=== PATIENT | female | born 1980 | race Caucasian/White ===

== ENCOUNTER 2019-03-11 12:10 | Emergency (ER) | payer OTHER ==
[~2019-03-11] VITALS: Ht 162.6 cm; Wt 77.1 kg
[~2019-03-11 12:10] MED LIST: ALBU90OI; AMOX500 PO; AMPDEX10 PO; Augmentin 875-1 EACH PO; BC PATCH; BUPR150ER PO; BUPR150T2 PO; CITA20 PO; CLON1 PO; CODGUAEL PO; DOCU100 PO; ESTNORT PO; FLUT.05NI; GABA300 PO; HYDPAM25 PO; Hair, Skin & N1 EACH; IBUP600 PO; IBUP800 PO; KETO10 PO; METPHE10; METPHE20; METPHE20 PO; Macrodantin100 MG PO; Norco 5-325 Ta1 EACH PO; ONDA4ODT MM; OXYACE5T PO; PRAZ5 PO; PROC10 PO; PROM25 PO; PROM25S PR; Phenergan25 M1 PO; TOPI25; TRAM50 PO; TRAZ100 PO; Valium5 MG PO; WELLBUTRIN; ZIPR20; ZIPR20 PO; Zyprexa10 MG PO
[2019-03-11] MEDS ORDERED: CITA20 (12:28)
[2019-03-11] MEDS ORDERED: Lisinopril2.5 MG (12:28)
[2019-03-11] MEDS ORDERED: ESCI5 (12:28)
[2019-03-11 12:49] LABS: BASOPHILS ABSOLUTE AUTO 0.03 K/mm3 (0.00-0.23); BASOPHILS PERCENT AUTO 0 % (0-2); EOSINOPHILS ABSOLUTE AUTO 0.01 K/mm3 (0.00-0.68); EOSINOPHILS PERCENT AUTO 0 % (0-6); Hematocrit 37.8 % (33.0-51.0); Hemoglobin 12.6 g/dL (11.5-16.0); IMMATURE GRAN ABSOLUTE AUTO 0.02 K/mm3 (0.00-0.10); IMMATURE GRAN PERCENT AUTO 0 % (0-1); LYMPHOCYTES ABSOLUTE AUTO 1.26 K/mm3 (0.84-5.20); LYMPHOCYTES PERCENT AUTO 18 % (21-46); MONOCYTES PERCENT AUTO 9 % (4-13); Mean Corpuscular HGB 28.9 pg (26.0-34.0); Mean Corpuscular HGB Conc 33.3 g/dL (31.5-36.5); Mean Corpuscular Volume 87 fL (80-100); Mean Platelet Volume 11.3 fL (9.1-12.4); NEUTROPHILS ABSOLUTE AUTO 4.91 K/mm3 (1.96-9.15); NEUTROPHILS PERCENT AUTO 72 % (41-73); Platelet Count 256 K/mm3 (150-400); RDW Coefficient Variation 12.8 % (11.7-14.2); RDW Standard Deviation 40.4 fL (35.1-46.3); Red Blood Cell Count 4.36 M/mm3 (3.80-5.20); White Blood Cell Count 6.83 K/mm3 (4.00-11.30)
[2019-03-11 13:02] LABS: Alanine Aminotransfer (ALT/SGP 30 U/L (12-78); Albumin, Blood 3.6 g/dL (3.4-5.0); Albumin/Globulin Ratio 0.9 (0.8-1.8); Alk Phos 62 U/L (50-136); Anion Gap 6 mmol/L (6-16); Aspartate Aminotrans (AST/SGOT 27 U/L (12-37); Bilirubin, Total 0.8 mg/dL (0.1-1.0); Blood Urea Nitrogen 11 mg/dL (8-24); Bun/Creatinine Ratio 15.4 (12.0-20.0); CO2, Blood 25 mmol/L (21-32); Calcium, Blood 8.6 mg/dL (8.5-10.1); Chloride, Blood 109 mmol/L (98-108); Creatinine, Blood 0.71 mg/dL (0.40-1.00); Globulin, Blood 3.9 g/dL (2.2-4.0); Glomerular Filtration Rate >60 (60-); Glucose, Blood 112 mg/dL (70-99); Potassium, Blood 4.2 mmol/L (3.5-5.5); Sodium, Blood 140 mmol/L (136-145); Total Protein, Blood 7.5 g/dL (6.4-8.2)
[2019-03-11 13:18] LABS: Source, Urine Voided
[2019-03-11 13:22] LABS: Bilirubin, Urine Neg (Neg); Blood, Urine 2+ (Neg); Glucose Qualitative, Urine Neg (Neg); Ketones, Urine Neg (Neg); Leukocyte Esterase, Urine Neg (Neg); Nitrite, Urine Neg (Neg); Protein, Urine Neg (Neg); Specific Gravity, Urine 1.025 (1.003-1.022); Urobilinogen, Urine 1+ (Normal)
[2019-03-11 14:17] LABS: Appearance, Urine Clear (Clear); Color, Urine Yellow (P-Yellow)
[2019-03-11 14:18] LABS: Bacteria Not Seen /hpf; Squamous Epithelial Cells Mod /hpf (Few); White Blood Cells, Urine 0-2 /hpf (0-5)
[2019-03-11] MEDS ORDERED: IBUP400 PO (14:48)
[2019-03-11] MEDS ORDERED: Zofran8 MG PO (14:48)
== END 2019-03-11 15:00 | disposition home or self-care (01) ==
LOC: ER 12:10
PROVIDERS: Emergency Medicine; Physician Assistant
DX: R10.32 Left lower quadrant pain (principal); R11.0 Nausea; F43.9 Reaction to severe stress, unspecified; Z79.899 Other long term (current) drug therapy; F32.9 Major depressive disorder, single episode, unspecified; Z87.891 Personal history of nicotine dependence
CPT/HCPCS: 36415; 80053; 81001; 83690; 85025; 96374; 99284-25; J1885